=== PATIENT | female | born 1985 | race African-American/Black ===

== ENCOUNTER 2017-10-24 21:42 | Emergency (ER) | payer OTHER ==
--- NOTE | 2017-10-24 21:51 | ED Physician Documentation ---
PD HPI HEADACHE - Stated complaint Stated Complaint: HEADACHE - Chief complaint Chief Complaint: Neuro - History obtained from History obtained from: Patient - History of Present Illness Timing - onset: How many days ago (4-5) Timing - duration: Days (4-5) Timing - details: Gradual onset, Still present, Constant Worst headache ever?: No: Worst headache ever? (has had migraines in the past and they usually were short (few hours to part of a day) or would respond to Maxalt. But was told to not take that by her PROJECT LANDSCAPE ARCHITECT.) Location: Front, Right Quality: Throbbing, Aching Associated symptoms: Nausea. No: Fever, Stiff neck, Weakness, Numbness, Vision changes (but is light sensitive) Improved by: No: Meds (zofran and tylenol) Worsened by: Light Contributing factors: No: Hypertension, Recent illness, Trauma Similar symptoms before: Diagnosis (migraines) Recently seen: Not recently seen Review of Systems Constitutional: denies: Fever, Chills Eyes: reports: Photophobia. denies: Loss of vision Nose: denies: Rhinorrhea / runny nose, Congestion Throat: denies: Sore throat Cardiac: denies: Chest pain / pressure, Palpitations Respiratory: denies: Dyspnea, Cough GI: reports: Nausea, Vomiting. denies: Abdominal Pain, Diarrhea : reports: Now EGA (9 weeks). denies: Dysuria, Frequency Skin: denies: Rash, Lesions Musculoskeletal: denies: Extremity swelling Neurologic: reports: Generalized weakness, Headache. denies: Focal weakness, Numbness, Near syncope, Confused, Altered mental status, Head injury, LOC Endocrine: denies: Easy bruising / bleeding PD PAST MEDICAL HISTORY - Past Medical History Cardiovascular: None Respiratory: None Neuro: Migraines Endocrine/Autoimmune: None - Allergies Allergies/Adverse Reactions: Allergies Allergy/AdvReac Type Severity Reaction Status Date / Time Penicillins Allergy Respiratory Verified 10/24/17 21:49 PD ED PE NORMAL - Vitals Vital signs reviewed: Yes - General General: Alert and oriented X 3, No acute distress, Well developed/nourished - HEENT HEENT: PERRL, EOMI (light sensitive), Ears normal, Pharynx benign - Neck Neck: Supple, no meningeal sign, No adenopathy - Cardiac Cardiac: RRR, No murmur - Respiratory Respiratory: Clear bilaterally - Abdomen Abdomen: Soft, Non tender, Other (bedside US showing IUP with size c/w dates and heart beat noted. ) - Back Back: No CVA TTP - Derm Derm: Normal color - Extremities Extremities: Normal ROM s pain, No edema - Neuro Neuro: Alert and oriented X 3, No motor deficit, Normal speech Results - Vitals Vitals: Vital Signs - 24 hr 10/24/17 10/24/17 10/25/17 21:46 23:23 00:08 Temperature 35.8 C L Heart Rate 90 72 71 Respiratory 18 18 17 Rate Blood Pressure 141/88 H 115/64 114/71 O2 Saturation 100 115 H 100 Oxygen O2 Source Room air PD MEDICAL DECISION MAKING - ED course Complexity details: reviewed results (bedside US showed normal IUP with CRL 8.6 weeks c/w dates, and heart beat seen. ), re-evaluated patient (improved quite well with migraine targeted regimen. Initial BP was some elevated but improved to 114 systolic after meds. ), considered differential, d/w patient - Sepsis Event Vital Signs: Vital Signs - 24 hr 10/24/1718 10/25/17 21:46 23:23 00:08 Temperature 35.8 C L Heart Rate 90 72 71 Respiratory 18 18 17 Rate Blood Pressure 141/88 H 115/64 114/71 O2 Saturation 100 115 H 100 Oxygen O2 Source Room air Departure - Departure Disposition: 01 Home, Self Care Clinical Impression: Migraine Qualifiers: Migraine type: without aura Status migrainosus presence: with status migrainosus Intractability: not intractable Qualified Code(s): G43.001 - Migraine without aura, not intractable, with status migrainosus Qualifiers: Weeks of gestation: 9 weeks Qualified Code(s): Z3A.09 - 9 weeks gestation of Condition: Stable Record reviewed to determine appropriate education?: Yes Instructions: ED Headache Migraine Follow-Up: DIONNE Gayle [Provider Group] Comments: Drink lots of fluids. Continue usual medications. Add Tylenol if needed for headache. Follow-up with your primary care/ PROJECT LANDSCAPE ARCHITECT regarding subsequent treatment of further migraines. You could use a combination of the promethazine with ibuprofen during this point in . Discharge Date/Time: 10/25/17 00:17
[2017-10-24] MEDS ORDERED: diphenhydrAMINE INJ 50 MG/ML VIAL IVP STA (22:16)
[2017-10-24] MEDS ORDERED: DEXAMETHASONE 10 MG/ML VIAL IVP STA (22:16)
[2017-10-24] MEDS ORDERED: METOCLOPRAMIDE 10 MG/2 ML VIAL IVP STA (22:16)
[2017-10-24] MEDS ORDERED: SODIUM CHLORIDE 0.9% 1,000 ML IV ONE (22:16)
[2017-10-24] MEDS ORDERED: KETOROLAC 60 MG/2 ML VIAL IVP STA (22:16)
[2017-10-24] MEDS ORDERED: HYDROcod/ACET 5/325 Prepack 4 PO STA (23:37)
[2017-10-24] MEDS ORDERED: ACETAMINOPHEN 325 MG TABLET PO STA (23:37)
[2017-10-25 00:08] VITALS: BP 114/71
== END 2017-10-25 00:17 | disposition home or self-care (01) ==
LOC: ED 21:42
DX: O26.891 Other specified pregnancy related conditions, first trimester (principal); G43.001 Migraine without aura, not intractable, with status migrainosus; Z3A.09 9 weeks gestation of pregnancy
CPT/HCPCS: 96361; 96374; 96375; 99283; 99284; A9270; J1200; J2765

== ENCOUNTER 2017-12-24 19:30 | Emergency (ER) | payer OTHER ==
--- NOTE | 2017-12-24 20:14 | ED Physician Documentation ---
PD HPI CHEST PAIN - Stated complaint Stated Complaint: RAPID HEARTBEAT 18 WKS - Chief complaint Chief Complaint: Cardiac - History obtained from History obtained from: Patient - History of Present Illness Timing - onset: Today Timing - onset during: Light activity (walking up stairs) Timing - duration: Minutes Timing - details: Abrupt onset, Now resolved (last just few minutes, felt heart rate going fast when walking up stairs. Caused some discomfort/sharp pain left back with it. Heart rate improved after few minutes and no further pain.) Quality: Aching, Sharp Location: Left chest Radiation: Back Improved by: Nothing (the feeling stopped after few minutes.) Worsened by: No: Inspiration Associated symptoms: Feeling faint / dizzy, Palpitations (feeling of heart racing quickly abrupt onset.). No: Shortness of air, Diaphoresis, Nausea, Vomiting, General Weakness Similar symptoms before: No diagnosis (had similar eipsodes years ago when [place]. Had Holter monitor without acute findings.) Recently seen: Not recently seen Review of Systems Constitutional: denies: Fever, Chills Nose: denies: Rhinorrhea / runny nose, Congestion Throat: denies: Sore throat Cardiac: reports: Palpitations. denies: Chest pain / pressure, Pedal edema, Calf pain Respiratory: reports: Other (no chestwall tenderness). denies: Dyspnea, Cough, Wheezing GI: denies: Abdominal Pain, Nausea, Vomiting, Diarrhea Musculoskeletal: denies: Back pain, Extremity swelling Neurologic: denies: Generalized weakness, Near syncope Endocrine: denies: Weight loss PD PAST MEDICAL HISTORY - Past Medical History Cardiovascular: None, Arrhythmia (had episodes of fast heart rate years ago and had eval with Holter. No acute findings per patient. 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 denies: Aortic aneursym, Aortic dissection PD ED PE NORMAL - Vitals Vital signs reviewed: Yes - General General: Alert and oriented X 3, No acute distress, Well developed/nourished - HEENT HEENT: Pharynx benign - Neck Neck: Supple, no meningeal sign, No adenopathy - Cardiac Cardiac: RRR, No murmur - Respiratory Respiratory: Clear bilaterally - Abdomen Abdomen: Normal bowel sounds, Soft, No organomegaly, Other (bedside U/S showing good IUP with mov). No: Non distended (but gravid c/w daters) - Back Back: No CVA TTP - Derm Derm: Normal color, Warm and dry, No rash - Extremities Extremities: No tenderness to palpate, Normal ROM s pain, No edema, No calf tenderness / cord - Neuro Neuro: Alert and oriented X 3, No motor deficit, Normal speech Results - Vitals Vitals: Oxygen O2 Source Room air - EKG (time done) 19:48 Rate: Rate (enter#) Rhythm: NSR [place]: Normal Intervals: Normal DC Ischemia: Normal ST segments. No: ST elevation c/w ischemia, ST depression - Labs Labs: Laboratory Tests 12/24/17 12/24/17 20:48 20:48 WBC 11.2 H RBC 3.71 L Hgb 11.6 L Hct 34.1 L MCV 92.0 MCH 31.2 H MCHC 33.9 RDW 13.9 Plt Count 285 MPV 7.2 L Neut # (Auto) 8.1 H Lymph # (Auto) 1.8 [place] # (Auto) 1.1 H Eos # (Auto) 0.2 Baso # (Auto) 0.0 Absolute Nucleated RBC 0.01 Nucleated RBC % 0.0 Sodium 136 Potassium 4.6 Chloride 103 Carbon Dioxide 25 Anion Gap 8.0 BUN 9 Creatinine 0.8 Estimated GFR (MDRD) 100 Glucose 100 Calcium 9.3 Magnesium 1.8 Total Bilirubin 0.8 AST 17 ALT 13 Alkaline Phosphatase 68 Total Protein 7.0 Albumin 3.3 Globulin 3.7 Albumin/Globulin Ratio 0.9 L Lipase 20 L PD MEDICAL DECISION MAKING - ED course Complexity details: considered differential, d/w patient - Sepsis Event Vital Signs: Oxygen O2 Source Room air Departure - Departure Disposition: 01 Home, Self Care Clinical Impression: Rapid heart rate Qualifiers: Weeks of gestation: 18 weeks Qualified Code(s): Z3A.18 - 18 weeks gestation of Condition: Stable Record reviewed to determine appropriate education?: Yes Instructions: ED Tachycardia Pat PSVT Comments: Drink lots of fluids. Your basic electrolytes and blood count are okay here. Your heart rate and blood pressure and EKG are normal as well. Bedside ultrasound shows normal . Follow-up with your primary care if you have recurring episodes of the feeling of fast heart rate. If so they can do a recording monitor to try to capture some of the events to see if they truly are abnormal rhythm. Return if worsening symptoms. Discharge Date/Time: 12/24/17 21:33
[2017-12-24 20:51] LABS: BASOPHILS % (AUTO) 0.4 %; EOSINOPHILS # (AUTO) 0.2 10^3/uL (0.0-0.7); EOSINOPHILS % (AUTO) 1.5 %; HGB - HEMOGLOBIN 11.6 g/dL (12.0-16.0); LYMPHOCYTES # (AUTO) 1.8 10^3/uL (1.5-3.5); LYMPHOCYTES % (AUTO) 16.2 %; MEAN CORPUSCULAR HEMOGLOBIN 31.2 pg (27.0-31.0); MEAN CORPUSCULAR HGB CONC 33.9 g/dL (32.0-36.0); MEAN PLATELET VOLUME 7.2 fL (7.9-10.8); MONOCYTES # (AUTO) 1.1 10^3/uL (0.0-1.0); MONOCYTES % (AUTO) 9.5 %; NEUTROPHILS # (AUTO) 8.1 10^3/uL (1.5-6.6); NEUTROPHILS % (AUTO) 72.4 %; PLT - PLATELET COUNT 285 10^3/uL (130-450); RED BLOOD COUNT 3.71 10^6/uL (4.20-5.40); RED CELL DISTRIBUTION WIDTH 13.9 % (12.0-15.0); WHITE BLOOD COUNT 11.2 x10^3/uL (4.8-10.8)
[2017-12-24 21:04] LABS: ALBUMIN 3.3 g/dL (3.2-5.5); ALBUMIN/GLOBULIN RATIO 0.9 (1.0-2.2); BILIRUBIN,TOTAL 0.8 mg/dL (0.2-1.0); CALCIUM 9.3 mg/dL (8.5-10.3); CREATININE 0.8 mg/dL (0.4-1.0); MAGNESIUM 1.8 mg/dL (1.7-2.8)
[2017-12-24 21:18] VITALS: BP 126/68
== END 2017-12-24 21:33 | disposition home or self-care (01) ==
LOC: ED 19:30
DX: O26.892 Other specified pregnancy related conditions, second trimester (principal); R00.0 Tachycardia, unspecified; Z3A.18 18 weeks gestation of pregnancy
CPT/HCPCS: 36415; 80053; 83690; 83735; 85025; 93005; 99283

== ENCOUNTER 2018-03-17 19:10 | Outpatient (CLI) | payer OTHER ==
[2018-03-17 19:36] VITALS: BP 116/71
[2018-03-17 20:00] LABS: BILIRUBIN,URINE NEGATIVE (NEGATIVE); GLUCOSE, URINE (UA) NEGATIVE (NEGATIVE); KETONES,URINE (UA) NEGATIVE (NEGATIVE); LEUKOCYTE ESTERASE, URINE NEGATIVE (NEGATIVE); NITRITE,URINE NEGATIVE (NEGATIVE); OCCULT BLOOD,URINE NEGATIVE (NEGATIVE); PROTEIN,URINE NEGATIVE (NEGATIVE); UROBILINOGEN,URINE 0.2 (NORMAL) E.U./dL (NORMAL)
[2018-03-17 20:10] LABS: BACTERIA,URINE None Seen /HPF (None Seen); CLARITY,URINE CLEAR (CLEAR); RBC,URINE 0-5 /HPF (0-5); SQUAMOUS EPITHELIAL CELL,UR FEW Squamous (<= Few)
== END 2018-03-17 21:26 | disposition home or self-care (01) ==
LOC: WFO 19:10 → FBP 19:12 → WFO 21:26
PROVIDERS: ATTEND Obstetrics & Gynecology
DX: O34.219 Maternal care for unspecified type scar from previous cesarean delivery (principal); Z3A.30 30 weeks gestation of pregnancy
CPT/HCPCS: 81001; 82731; 87086; 99214

== ENCOUNTER 2018-03-30 20:12 | Outpatient (CLI) | payer OTHER ==
[2018-03-30 21:00] VITALS: BP 136/64
== END 2018-03-30 21:01 | disposition short-term general hospital (02) ==
LOC: WFO 20:12 → FBP 20:13 → WFO 21:01
PROVIDERS: ATTEND Obstetrics & Gynecology
DX: O99.89 Other specified diseases and conditions complicating pregnancy, childbirth and the puerperium (principal); R51 Headache; Z3A.32 32 weeks gestation of pregnancy
CPT/HCPCS: 99212

== ENCOUNTER 2018-03-30 21:04 | Emergency (ER) | payer OTHER ==
--- NOTE | 2018-03-30 22:58 | ED Physician Documentation ---
PD HPI HEADACHE - Stated complaint Stated Complaint: MIGRAINE/32 WKS/OB SENT TO ER - Chief complaint Chief Complaint: Neuro - History obtained from History obtained from: Patient - History of Present Illness Timing - onset: Yesterday Timing - details: Gradual onset, Constant Pain level now: 8 Worst headache ever?: No: Worst headache ever? Location: Left, Other (retrorbital and occipital, left) Associated symptoms: Nausea. No: Fever, Stiff neck, Vomiting, Numbness, Vision changes Improved by: Dark room, Quiet Worsened by: Light, Noise Similar symptoms before: Diagnosis (similar to previous migraine headaches) Recently seen: Not recently seen - Additional information Additional information: patient is 32 weeks . c/o left-sided headache that is typical for her migraine headaches. took tylenol without relief Review of Systems Constitutional: denies: Fever, Chills, Sweats Eyes: reports: Photophobia. denies: Loss of vision, Decreased vision GI: reports: Nausea. denies: Abdominal Pain, Vomiting : reports: Now EGA (32 weeks). denies: Vaginal bleeding Musculoskeletal: denies: Neck pain Neurologic: reports: Headache. 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 HEENT: None Psych: None Musculoskeletal: None Derm: None - Past Surgical History Past Surgical History: Yes Ortho: Other /DRESSAGE JUDGE: section HEENT: Tonsil/Adenoidectomy - Present Medications Home Medications: Ambulatory Orders Medication Instructions Recorded Confirmed Metoclopramide [Reglan] 10 mg PO Q6H PRN #10 tablet 03/31/18 - Allergies Allergies/Adverse Reactions: Allergies Allergy/AdvReac Type Severity Reaction Status Date / Time Penicillins Allergy Respiratory Verified 03/30/18 21:09 - Social History Does the pt smoke?: No Smoking Status: Never smoker Does the pt drink ETOH?: No Does the pt have substance abuse?: No - Immunizations Immunizations are current?: Yes - POLST Patient has POLST: No PD ED PE NORMAL - Vitals Vital signs reviewed: Yes - General General: Alert and oriented X 3, Well developed/nourished, Other (appears uncomfortable) - HEENT HEENT: PERRL, EOMI - Neck Neck: Supple, no meningeal sign - Cardiac Cardiac: RRR, No murmur - Respiratory Respiratory: No respiratory distress, Clear bilaterally - Abdomen Abdomen: Soft, Non tender - Neuro Neuro: Alert and oriented X 3, 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 site 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, Normal speech Results - Vitals Vitals: Vital Signs - 24 hr 03/30/18 03/31/18 03/31/18 21:07 00:35 00:43 Temperature 36.6 C Heart Rate 100 88 Respiratory 20 17 17 Rate Blood Pressure 140/78 H 132/88 H O2 Saturation 100 100 03/31/18 01:37 Temperature Heart Rate 87 Respiratory 17 Rate Blood Pressure O2 Saturation Oxygen O2 Source Room air PD MEDICAL DECISION MAKING - ED course Complexity details: reviewed old records, re-evaluated patient, considered differential, d/w patient ED course: on reevaluation after IV reglan, benadryl, decadron, po acetaminophen: patient appears comfortable and reports adequate improvement. She is comfortable going home Departure - Departure Disposition: , Self Care Clinical Impression: Migraine Condition: Good Instructions: ED Headache Migraine Prescriptions: Metoclopramide [Reglan] 10 mg PO Q6H PRN #10 tablet PRN Reason: Nausea / Vomiting Discharge Date/Time: 03/31/18 01:37
[2018-03-30] MEDS ORDERED: SODIUM CHLORIDE 0.9% 1,000 ML IV STA (23:19)
[2018-03-30] MEDS ORDERED: DEXAMETHASONE 10 MG/ML VIAL IVP STA (23:22)
[2018-03-30] MEDS ORDERED: METOCLOPRAMIDE 10 MG/2 ML VIAL IVP STA (23:23)
[2018-03-30] MEDS ORDERED: diphenhydrAMINE INJ 50 MG/ML VIAL IVP STA (23:23)
[2018-03-30] MEDS ORDERED: ACETAMINOPHEN 325 MG TABLET PO STA (23:24)
[2018-03-31 00:44] VITALS: BP 132/88
== END 2018-03-31 01:37 | disposition home or self-care (01) ==
LOC: ED 21:04
DX: O99.353 Diseases of the nervous system complicating pregnancy, third trimester (principal); G43.909 Migraine, unspecified, not intractable, without status migrainosus; Z3A.32 32 weeks gestation of pregnancy
CPT/HCPCS: 96361; 96374; 96375; 99283; A9270; J1200; J2765; 99212

== ENCOUNTER 2018-07-04 07:50 | Emergency (ER) | payer OTHER ==
[2018-07-04 07:58] VITALS: BP 126/82
--- NOTE | 2018-07-04 08:00 | ED Physician Documentation ---
PD HPI SKIN - Stated complaint Stated Complaint: POSS ALLERGIC REACTION - History obtained from History obtained from: Patient - History of Present Illness Timing - onset: Yesterday Timing - duration: Days (2) Timing - details: Gradual onset Location: Other (palms and feet, with some sore throat as well) Quality / character: Itchy, Painful Associated symptoms: No: Myalgias, N/V/D Contributing factors: Recent illness (has had some URI symptoms the past week). No: Exposed to Poison silvestre/oak, Insect bite /sting Similar symptoms before: Has not had sx before Recently seen: Not recently seen Review of Systems Constitutional: reports: Chills. 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: Yes - POLST Patient has POLST: No PD ED PE NORMAL - Vitals Vital signs reviewed: Yes - General General: Alert and oriented X 3, No acute distress, Well developed/nourished - HEENT HEENT: Ears normal. No: Pharynx benign (there are red, small ulcerative spots on palatte and buccal gums. Tonsils appear normal.) - Neck Neck: Supple, no meningeal sign, No adenopathy - Cardiac Cardiac: RRR, No murmur - Respiratory Respiratory: Clear bilaterally - Abdomen Abdomen: Soft, Non tender - Derm Derm: Normal color, Warm and dry - Extremities Extremities: Other (hands with tender, indurated red spots scattered on palms. Feet not inspected but patient says similar. ) Results - Vitals Vitals: Oxygen O2 Source Room air PD MEDICAL DECISION MAKING - ED course Complexity details: considered differential (firm tender spots on hands, feet, mouth, recent/current URI symptoms. Does not seem allergic reaction. ), d/w patient Departure - Departure Disposition: 01 Home, Self Care Clinical Impression: Hand, foot and mouth disease (HFMD) Condition: Stable Record reviewed to determine appropriate education?: Yes Instructions: ED Hand Foot Mouth Disease Ch Prescriptions: Dexamethasone [Decadron] 4 mg PO DAILY #5 tablet Comments: This looks more like a viral rash called kmlq-arhv-ydk-mouth disease which is just the rash manifestation of a viral illness (head cold"). A an allergic reaction typically does not have this type of pattern. However you could hold off on the metoclopramide another day and take the Decadron anti-inflammatory to help with some of the tenderness and inflammation. If the rash is persisting, that would speak more to it being a viral illness and you can resume the metoclopramide. Discharge Date/Time: 07/04/18 08:25
[2018-07-04] MEDS ORDERED: DEXAMETHASONE 10 MG/ML VIAL PO STA (08:16)
== END 2018-07-04 08:25 | disposition home or self-care (01) ==
LOC: ED 07:50
DX: B08.4 Enteroviral vesicular stomatitis with exanthem (principal)
CPT/HCPCS: 99283

== ENCOUNTER 2018-09-10 22:55 | Emergency (ER) | payer OTHER ==
--- NOTE | 2018-09-10 23:25 | ED Physician Documentation ---
PD HPI CHEST PAIN - Stated complaint Stated Complaint: CHEST DISCOMFORT - Chief complaint Chief Complaint: Cardiac - History obtained from History obtained from: Patient - History of Present Illness Timing - onset: Today Timing - onset during: Rest (She had onset of a left-sided headache which was abrupt and sharp. She then noted pain down into the left side of the neck and l eft chest. She felt slightly lightheaded. She did not have any loss of vision. She denied any unit of lateral weakness. She denied any shortness of breath. The pain was pretty intense and lasted for several minutes up to a half an hour. It then started tapering down. She comes in for evaluation.) Timing - details: Abrupt onset, Still present (tapering, and the headache is mostly gone, but still hurting left chest and side of neck.) Quality: Aching, Sharp, Pain Location: Left chest Radiation: Neck (and left head, which is where it started actually.) Associated symptoms: Feeling faint / dizzy. No: Shortness of air, Diaphoresis, Nausea, Palpitations Similar symptoms before: Has not had sx before (She has had migraines in the past but states this feels quite different from those.) Review of Systems Constitutional: denies: Fever, Chills, Myalgias Eyes: denies: Loss of vision, Decreased vision Nose: denies: Rhinorrhea / runny nose, Congestion Throat: denies: Sore throat Cardiac: reports: Chest pain / pressure. 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 OPERATOR: section HEENT: Tonsil/Adenoidectomy - Present Medications Home Medications: Ambulatory Orders Medication Instructions Recorded Confirmed Metoclopramide [Reglan] 10 mg PO Q6H PRN #10 tablet 03/31/18 07/04/18 Dexamethasone [Decadron] 4 mg PO DAILY #5 tablet 07/04/18 - Allergies Allergies/Adverse Reactions: Allergies Allergy/AdvReac Type Severity Reaction Status Date / Time Penicillins Allergy Respiratory Verified 09/10/18 23:03 - Social History Does the pt smoke?: No Smoking Status: Never smoker Does the pt drink ETOH?: No Does the pt have substance abuse?: No - Immunizations Immunizations are current?: Yes - POLST Patient has POLST: No PD ED PE NORMAL - Vitals Vital signs reviewed: Yes - General General: Alert and oriented X 3, No acute distress, Well developed/nourished - HEENT HEENT: PERRL, EOMI (fundi appear normal), Moist mucous membranes, Pharynx benign - Neck Neck: Supple, no meningeal sign, No adenopathy, No JVD, No bruit - Cardiac Cardiac: RRR, No murmur - Respiratory Respiratory: Clear bilaterally - Derm Derm: Normal color, Warm and dry, No rash - Extremities Extremities: No deformity, No tenderness to palpate, Normal ROM s pain, No edema, No calf tenderness / cord - Neuro Neuro: Alert and oriented X 3, 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, No motor deficit, No sensory deficit, Normal speech, Other Results - Vitals Vitals: Vital Signs - 24 hr 09/10/18 09/10/18 09/11/18 23:01 23:53 01:23 Temperature 36.9 C Heart Rate 100 76 70 Respiratory 18 18 17 Rate Blood Pressure 153/101 H 135/93 H 128/89 H O2 Saturation 100 100 100 09/11/18 09/11/18 09/11/18 01:50 01:56 01:58 Temperature Heart Rate 111 H 88 96 Respiratory 24 18 13 Rate Blood Pressure 173/102 H O2 Saturation 95 100 09/11/18 09/11/18 09/11/18 02:08 02:12 03:09 Temperature Heart Rate 86 81 67 Respiratory 18 17 15 Rate Blood Pressure 133/83 H 129/86 H O2 Saturation 100 96 100 09/11/18 03:18 Temperature Heart Rate 70 Respiratory 15 Rate Blood Pressure 129/86 H O2 Saturation 100 Oxygen O2 Source Room air - Labs Labs: Laboratory Tests 09/11/18 09/11/18 09/11/18 00:48 02:00 02:00 WBC 6.4 RBC 4.50 Hgb 13.2 Hct 39.4 MCV 87.6 MCH 29.4 MCHC 33.6 RDW 13.9 Plt Count 278 MPV 7.5 L Neut # (Auto) 2.5 Lymph # (Auto) 3.0 [place] # (Auto) 0.7 Eos # (Auto) 0.1 Baso # (Auto) 0.1 Absolute Nucleated RBC 0.01 Nucleated RBC % 0.1 ESR 3 Sodium 141 Potassium 3.6 Chloride 102 Carbon Dioxide 29 Anion Gap 10.0 BUN 13 Creatinine 0.9 Estimated GFR (MDRD) 87 L Glucose 112 H Calcium 9.3 Total Bilirubin 0.9 AST 15 ALT 10 Alkaline Phosphatase 91 Total Protein 7.3 Albumin 3.7 Globulin 3.6 Albumin/Globulin Ratio 1.0 Lipase 21 L - Rads (name of study) neck and hed angio Radiology: Prelim report reviewed (Normal studies without any appearance of dissection aneurysms or occlusions. No structural abnormalities on head CT.), See rad report PD MEDICAL DECISION MAKING - ED course Complexity details: re-evaluated patient (Right after the CT scan she did develop a feeling of burning in her skin with some redness and also feeling of trouble breathing and swallowing. Here in the department she did look like she was working to breathe. Evaluation of her throat did not show any obvious edema. She did not have any wheezing. She is given IV Benadryl and steroids with improvement in her symptoms over several minutes. She is back to her baseline now and feeling okay.), considered differential (Given the abruptness of the headache and the neck and chest pain, I was concerned about vascular problems such as dissection. He did not have any focal weaknesses. She states her headache is very unlike her migraines. I do feel we need to do some imaging studies with and Micki over neck and head to really evaluate for serious conditions.), d/w patient Departure - Departure Disposition: 01 Home, Self Care Clinical Impression: Headache Qualifiers: Headache type: unspecified Headache chronicity pattern: acute headache Intractability: not intractable Qualified Code(s): R51 - Headache Chest pain Qualifiers: Chest pain type: precordial pain Qualified Code(s): R07.2 - Precordial pain Condition: Stable Record reviewed to determine appropriate education?: Yes Instructions: ED Chest Pain Atypical Unkn Cause, ED Cephalgia Unspecified Comments: Your scans of the neck and head are normal without any signs of blood vessel abnormalities or tumors or other serious causes. Presume therefore your headache is either a variation of migraine or muscular or such. Use ibuprofen or naproxen or Tylenol as needed for pains. Recheck if recurring symptoms. Regarding your reaction to the contrast dye, you can avoid contrast dye with further scans as much as possible. If you were to need a CT with contrast in the future, the symptoms can be diminished or avoided by treating ahead of time with some Benadryl and steroid. It is an uncommon reaction. Discharge Date/Time: 09/11/18 03:29
[2018-09-11] MEDS ORDERED: KETOROLAC 30 MG/ML VIAL IVP STA (00:04)
[2018-09-11] MEDS ORDERED: IOVERSOL 320 100 ML VIAL IVP ONE ×2 (00:28→02:16)
[2018-09-11 01:12] LABS: ALBUMIN 3.7 g/dL (3.2-5.5); BILIRUBIN,TOTAL 0.9 mg/dL (0.2-1.0); CALCIUM 9.3 mg/dL (8.5-10.3); CREATININE 0.9 mg/dL (0.4-1.0); TOTAL PROTEIN 7.3 g/dL (6.7-8.2)
[2018-09-11] MEDS ORDERED: diphenhydrAMINE INJ 50 MG/ML VIAL IVP STA (01:51)
[2018-09-11] MEDS ORDERED: ALBUTEROL NEB 2.5 MG/3 ML INH STA (01:52)
[2018-09-11] MEDS ORDERED: DEXAMETHASONE 10 MG/ML VIAL IVP STA (01:52)
[2018-09-11] MEDS ORDERED: diphenhydrAMINE INJ 50 MG/ML VIAL ONE (01:57)
[2018-09-11 02:17] LABS: BASOPHILS # (AUTO) 0.1 10^3/uL (0.0-0.1); BASOPHILS % (AUTO) 1.1 %; EOSINOPHILS # (AUTO) 0.1 10^3/uL (0.0-0.7); EOSINOPHILS % (AUTO) 2.3 %; HGB - HEMOGLOBIN 13.2 g/dL (12.0-16.0); LYMPHOCYTES % (AUTO) 46.5 %; MEAN CORPUSCULAR HEMOGLOBIN 29.4 pg (27.0-31.0); MEAN CORPUSCULAR HGB CONC 33.6 g/dL (32.0-36.0); MEAN CORPUSCULAR VOLUME 87.6 fL (81.0-99.0); MEAN PLATELET VOLUME 7.5 fL (7.9-10.8); MONOCYTES # (AUTO) 0.7 10^3/uL (0.0-1.0); MONOCYTES % (AUTO) 10.9 %; NEUTROPHILS # (AUTO) 2.5 10^3/uL (1.5-6.6); NEUTROPHILS % (AUTO) 39.2 %; PLT - PLATELET COUNT 278 10^3/uL (130-450); RED CELL DISTRIBUTION WIDTH 13.9 % (12.0-15.0); WHITE BLOOD COUNT 6.4 x10^3/uL (4.8-10.8)
--- NOTE | 2018-09-11 02:53 | CT Report ---
Reason: left headache and neck/chest pain Procedure Date: 09/11/2018 Accession Number: [id number] / [id number] Procedure: CT - ANGIO NECK W/WO CPT Code: FULL RESULT: EXAM: CT ANGIOGRAM NECK EXAM DATE: 09/11/2018 02:13 AM. CLINICAL HISTORY: Left headache and neck/chest pain. COMPARISON: None. TECHNIQUE: Routine axial helical imaging was performed from the skull base through the aortic arch. Reconstructions: Routine multiplanar 3D MIP reconstructions. IV Contrast: [id number] 80ml. Evaluation of arterial stenosis is based on a NASCET method of measurement. In accordance with CT protocol optimization, one or more of the following dose reduction techniques were utilized for this exam: automated exposure control, adjustment of mA and/or KV based on patient size, or use of iterative reconstructive technique. FINDINGS: Right Carotid: The common carotid, internal carotid, and external carotid arteries are widely patent. No dissection, significant atherosclerotic plaque, or calcification identified. Left Carotid: The common carotid, internal carotid, and external carotid arteries are widely patent. No dissection, significant atherosclerotic plaque, or calcification identified. Vertebrals: The vertebrobasilar system shows no stenoses. Intracranial Circulation: Normal. No stenoses or aneurysms of the visualized vessels. Other: The bones, soft tissues, and lung apices are within normal limits. IMPRESSION: Normal neck CT angiogram. No hemodynamically significant stenoses. RADIA
--- NOTE | 2018-09-11 03:05 | CT Report ---
Reason: left headache and neck/chest pain Procedure Date: 09/11/2018 Accession Number: [id number] / [id number] Procedure: CT - ANGIO HEAD W CPT Code: FULL RESULT: EXAM: CT ANGIOGRAM HEAD. CT SCAN OF THE HEAD WITHOUT AND WITH CONTRAST. EXAM DATE: 09/11/2018 02:11 AM CLINICAL HISTORY: Left headache and neck/chest pain. COMPARISON: None. TECHNIQUE: - CT Scan Head: Using a multidetector scanner, axial images were acquired from the foramen magnum to the skull vertex prior to and following contrast administration. - CT Angiogram: Using a multidetector scanner, high-resolution axial images were acquired from the skull base through vertex following rapid infusion of intravenous contrast. Reformats: Multiplanar MIP reformats were reconstructed. Nascet criteria used for stenosis measurement. IV Contrast: [id number] 80ml. In accordance with CT protocol optimization, one or more of the following dose reduction techniques were utilized for this exam: automated exposure control, adjustment of mA and/or KV based on patient size, or use of iterative reconstructive technique. FINDINGS: NON-CONTRAST HEAD: Parenchyma: No intraparenchymal hemorrhage. No evidence of mass, midline shift, or CT findings of infarction. Burris-white differentiation is distinct. Extraaxial Spaces: Normal for age. No subdural or epidural collections identified. Ventricles: Normal in size and position. Sinuses and orbits: Imaged paranasal sinuses, orbits, and mastoids show no significant abnormality. Bones: No evidence of fracture or calvarial defect. Other: None. POST-CONTRAST HEAD: No abnormal enhancement. CT ANGIOGRAM HEAD: RIGHT: Internal Carotid artery: No evidence of dissection. No evidence of aneurysm along the intracranial ICA. Anterior Cerebral Artery: Patent without significant stenosis, aneurysm, or vascular malformation. Middle Cerebral Artery: Patent without significant stenosis, aneurysm, or vascular malformation. Posterior Cerebral Artery: Patent without significant stenosis, aneurysm, or vascular malformation. Posterior Communicating Artery: Patent. No aneurysm. Vertebral Artery: Patent without significant stenosis. No evidence of dissection. LEFT: Internal Carotid artery: No evidence of dissection. No evidence of aneurysm along the intracranial ICA. Anterior Cerebral Artery: Patent without significant stenosis, aneurysm, or vascular malformation. Middle Cerebral Artery: Patent without significant stenosis, aneurysm, or vascular malformation. Posterior Cerebral Artery: Patent without significant stenosis, aneurysm, or vascular malformation. Posterior Communicating Artery: Patent. No aneurysm. Vertebral Artery: Patent without significant stenosis. No evidence of dissection. CENTRAL: Anterior Communicating Artery: Patent. No aneurysm. Basilar Artery: Patent without significant stenosis. No aneurysm. DURAL VENOUS SINUSES AND MAJOR CENTRAL VEINS: Patent. IMPRESSION: CT Head: No acute intracranial abnormality. Specifically, no evidence of acute infarct, hemorrhage, or mass lesion. No abnormal enhancement. CTA Head: Normal CTA of the head. No significant vascular stenosis, dissection, or aneurysm. RADIA
[2018-09-11 03:10] VITALS: BP 129/86
== END 2018-09-11 03:29 | disposition home or self-care (01) ==
LOC: ED 22:55
DX: R51 Headache (principal); R07.2 Precordial pain; M54.2 Cervicalgia; R42 Dizziness and giddiness; L53.9 Erythematous condition, unspecified; R06.09 Other forms of dyspnea; R13.10 Dysphagia, unspecified; T50.8X5A Adverse effect of diagnostic agents, initial encounter; Y92.238 Other place in hospital as the place of occurrence of the external cause
CPT/HCPCS: 36415; 70496; 70498; 80053; 83690; 85025; 85651; 93005; 94640; 96374; 96375; 99284; J1200; Q9967

== ENCOUNTER 2018-11-07 12:26 | Outpatient (CLI) | payer OTHER ==
--- NOTE | 2018-11-08 14:23 | MRI Report ---
Reason: SCIATICA,UNSPECIFIED SITE Procedure Date: 11/07/2018 Accession Number: [id number] / [id number] Procedure: MRI - Lumbar Spine W/O CPT Code: FULL RESULT: EXAM: MRI LUMBAR SPINE WITHOUT CONTRAST EXAM DATE: 11/07/2018 01:33 PM. CLINICAL HISTORY: Low back pain. Right leg pain and numbness. Sciatica. COMPARISON: None. TECHNIQUE: Multiplanar, multisequence T1-weighted and fluid-sensitive sequences of the lumbar spine from T12 to S1 without contrast. Other: None. FINDINGS: Spinal Canal: The conus terminates at L1-L2. The conus medullaris and cauda equina are unremarkable. Alignment: No scoliosis or spondylolisthesis. Bone Marrow: Five lcp-ngt-jqlhlje lumbar vertebral bodies are assumed. No gross fractures or bone lesions. No bone marrow replacement. Disk Levels/Facets: T12-L1: Unremarkable. L1-L2: Unremarkable. L2-L3: Unremarkable. L3-L4: Unremarkable. L4-L5: Unremarkable. L5-S1: Mild disk space narrowing. Small posterior central disk protrusion with annular fissure. Minimal left foraminal narrowing. Musculature: Normal. No edema or fatty atrophy. Other: The partially visualized retroperitoneum is unremarkable. IMPRESSION: 1. Small posterior central disk protrusion with annular fissure and minimal foraminal narrowing at L5-S1. Comment: The following findings are so common in adults without low back pain that while we report their presence, they must be interpreted with caution and in the context of the clinical situation. (Reference Franklinvik et al, Spine 2001) Prevalence of findings in patients without low back pain: Disk degeneration (any evidence): 92% Disk desiccation/T2 signal loss: 83% Disk height loss: 56% Disk bulge: 64% Disk protrusion: 32% Annular tear/high intensity zone: 38% RADIA
== END 2018-11-07 12:27 | disposition home or self-care (01) ==
LOC: DI 12:26
PROVIDERS: ATTEND Nurse Practitioner Family
DX: M51.17 Intervertebral disc disorders with radiculopathy, lumbosacral region (principal)
CPT/HCPCS: 72148

== ENCOUNTER 2019-07-22 01:16 | Outpatient (CLI) | payer OTHER | END 2019-07-22 01:17 | disposition critical access hospital (66) | LOC: EMS 01:16 | PROVIDERS: ATTEND Surgery | DX: R05 Cough (principal); R07.89 Other chest pain | CPT/HCPCS: A0425; A0429 ==

== ENCOUNTER 2019-07-22 01:32 | Emergency (ER) | payer OTHER ==
[2019-07-22] MEDS ORDERED: predniSONE 20 MG TABLET PO STA (01:46)
[2019-07-22] MEDS ORDERED: BENZONATATE 100 MG CAPSULE PO STA (01:49)
--- NOTE | 2019-07-22 01:49 | ED Physician Documentation ---
History of Present Illness - Stated complaint Stated Complaint: SOA/COUGH - Chief complaint Chief Complaint: Resp - History obtained from History obtained from: Patient (The patient is a 33-year-old female who arrives via ambulance after she developed a cough and maybe some wheezing.She denies fevers, headache, neck pain or rashes denies any chest pain denies any hemoptysis.She does have a hand-held inhaler at home.She reports that she feels better now that she has had 1 breathing treatment.) Review of Systems Constitutional: reports: Reviewed and negative Eyes: reports: Reviewed and negative Ears: reports: Reviewed and negative Nose: reports: Reviewed and negative Throat: reports: Reviewed and negative Cardiac: reports: Reviewed and negative Respiratory: reports: Cough, Wheezing GI: reports: Reviewed and negative : reports: Reviewed and negative Skin: reports: Reviewed and negative Musculoskeletal: reports: Reviewed and negative Neurologic: reports: Reviewed and negative Psychiatric: reports: Reviewed and negative Endocrine: reports: Reviewed and negative Immunocompromised: reports: Reviewed and negative PD PAST MEDICAL HISTORY - Past Medical History Cardiovascular: Arrhythmia Respiratory: None Neuro: Migraines Endocrine/Autoimmune: None GI: None 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 HEENT: None Psych: None Musculoskeletal: None Derm: None - Past Surgical History Past Surgical History: Yes Ortho: Other /JANITOR HELPER: section HEENT: Tonsil/Adenoidectomy - Present Medications Home Medications: Ambulatory Orders Medication Instructions Recorded Confirmed Metoclopramide [Reglan] 10 mg PO Q6H PRN #10 tablet 03/31/18 07/04/18 dexAMETHasone [Decadron] 4 mg PO DAILY #5 tablet 07/04/18 Albuterol Sulfate [Albuterol 18 gm IH Q6HR PRN #1 hfa.aer.ad 07/22/19 Sulfate Hfa] Benzonatate [Tessalon Perle] 100 mg PO BID #10 capsule 07/22/19 - Allergies Allergies/Adverse Reactions: Allergies Allergy/AdvReac Type Severity Reaction Status Date / Time Iodine and Iodide Containing Allergy Anaphylaxis Verified 07/22/19 01:41 Produc Penicillins Allergy Respiratory Verified 07/22/19 01:40 - Social History Does the pt smoke?: No Smoking Status: Never smoker Does the pt drink ETOH?: No Does the pt have substance abuse?: No - Immunizations Immunizations are current?: Yes - POLST Patient has POLST: No PD ED PE NORMAL - Vitals Vital signs reviewed: Yes - General General: Alert and oriented X 3, No acute distress, Well developed/nourished - HEENT HEENT: Atraumatic, PERRL, Ears normal, Moist mucous membranes, Pharynx benign - Neck Neck: Supple, no meningeal sign, No JVD - Cardiac Cardiac: RRR, No murmur, Strong equal pulses - Respiratory Respiratory: No respiratory distress, Clear bilaterally - Abdomen Abdomen: Normal bowel sounds, Soft, Non tender, Non distended, No organomegaly - Back Back: No CVA TTP, No spinal TTP - Derm Derm: Normal color, Warm and dry, No rash, Other - Extremities Extremities: No deformity, No tenderness to palpate, Normal ROM s pain, No edema, No calf tenderness / cord - Neuro Neuro: Alert and oriented X 3, 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 There is minimal wheezing, no use of accessory muscles trachea is midline no respiratory distress.) Departure - Departure Disposition: 01 Home, Self Care Clinical Impression: Cough Condition: Stable Instructions: ED Viral Syndrome Follow-Up: Brittany Hickey, URGENT CARE NURSE PRACTITIONER [Primary Care Provider] - 07/22/19 Prescriptions: Albuterol Sulfate [Albuterol Sulfate Hfa] 18 gm IH Q6HR PRN #1 hfa.aer.ad PRN Reason: Wheezing Benzonatate [Tessalon Perle] 100 mg PO BID #10 capsule
--- NOTE | 2019-07-22 02:41 | XRAY Report ---
Reason: cough sob Procedure Date: 07/22/2019 Accession Number: [id number] / [id number] Procedure: XR - Chest 2 View X-Ray CPT Code: 58185 Final Report FULL RESULT: EXAM: CHEST RADIOGRAPHY EXAM DATE: 07/22/2019 02:21 AM. CLINICAL HISTORY: Cough sob. COMPARISON: None. TECHNIQUE: 2 views. FINDINGS: Lungs/Pleura: No focal opacities evident. No pleural effusion. No pneumothorax. Normal volumes. Mediastinum: Heart and mediastinal contours are unremarkable. Other: None. IMPRESSION: Normal 2-view chest radiography. RADIA
[2019-07-22 02:58] VITALS: BP 149/95
== END 2019-07-22 03:00 | disposition home or self-care (01) ==
LOC: EDUNIT# → ED 01:32
DX: R05 Cough (principal)
CPT/HCPCS: 71046; 99283; A9270; J7512

== ENCOUNTER 2021-06-22 22:59 | Emergency (ER) | payer OTHER ==
[2021-06-22 23:11] LABS: BASOPHILS % (AUTO) 0.4 %; EOSINOPHILS # (AUTO) 0.1 10^3/uL (0.0-0.7); HCT - HEMATOCRIT 40.3 % (37.0-47.0); HGB - HEMOGLOBIN 13.3 g/dL (12.0-16.0); LYMPHOCYTES # (AUTO) 3.1 10^3/uL (1.5-3.5); LYMPHOCYTES % (AUTO) 45.9 %; MEAN CORPUSCULAR HEMOGLOBIN 29.7 pg (27.0-31.0); MEAN PLATELET VOLUME 9.5 fL (7.9-10.8); MONOCYTES # (AUTO) 0.5 10^3/uL (0.0-1.0); MONOCYTES % (AUTO) 7.4 %; NEUTROPHILS % (AUTO) 45.2 %; PLT - PLATELET COUNT 286 10^3/uL (130-450); RED BLOOD COUNT 4.48 10^6/uL (4.20-5.40); RED CELL DISTRIBUTION WIDTH 12.8 % (12.0-15.0); WHITE BLOOD COUNT 6.8 x10^3/uL (4.8-10.8)
[2021-06-22 23:22] LABS: ALBUMIN 4.1 g/dL (3.2-5.5); ALBUMIN/GLOBULIN RATIO 1.2 (1.0-2.2); BILIRUBIN,TOTAL 0.9 mg/dL (0.2-1.0); CALCIUM 8.7 mg/dL (8.5-10.3); CREATININE 0.9 mg/dL (0.4-1.0); POTASSIUM 3.3 mmol/L (3.5-5.0); TOTAL PROTEIN 7.4 g/dL (6.7-8.2)
[2021-06-22] MEDS ORDERED: HYDROmorphone 1 MG/ML CARPUJECT IVP STA (23:45)
--- NOTE | 2021-06-23 01:20 | Ultrasound Report ---
PROCEDURE: Abdomen Limited INDICATIONS: RUQ and epigastric pain TECHNIQUE: Real-time focused scanning was performed of the abdomen, with image documentation. COMPARISON: None. FINDINGS: Liver is normal in size and demonstrates mildly increased hepatic echotexture. The gallbladder is normal. No gallstones, gallbladder wall thickening, pericholecystic progression or sonographic Rudolph sign. Common bile duct measures 4.9 mm in diameter. Pancreas is obscured by overlying bowel gas. Right kidney is normal in size. No hydronephrosis. Punctate hyperechoic foci in right kidney could be small nonobstructive stones. IMPRESSION: 1. Limited examination due to the patient's body habitus. 2. Diffuse increased hepatic echotexture is most likely secondary to fatty infiltration. Other hepato cellular disease could have a similar appearance. Please correlate with liver functions. 3. Normal gallbladder. No gallstones were ultrasound findings to suggest acute cholecystitis. 4. Possible nonobstructive right renal stones. No right hydronephrosis. Reviewed by: Akhil Clay MD on 06/23/2021 1:20 AM PST Approved by: Akhil Clay MD on 06/23/2021 1:20 AM PST Station ID: [id number]
[2021-06-23] MEDS ORDERED: KETOROLAC 30 MG/ML VIAL IVP STA (01:26)
[2021-06-23] MEDS ORDERED: HYDROmorphone 1 MG/ML CARPUJECT IVP STA (01:26)
[2021-06-23] MEDS ORDERED: IOVERSOL 320 100 ML VIAL IVP ONE (01:30)
[2021-06-23 03:11] LABS: BILIRUBIN,URINE NEGATIVE (NEGATIVE); GLUCOSE, URINE (UA) NEGATIVE (NEGATIVE); KETONES,URINE (UA) NEGATIVE (NEGATIVE); LEUKOCYTE ESTERASE, URINE NEGATIVE (NEGATIVE); NITRITE,URINE NEGATIVE (NEGATIVE); OCCULT BLOOD,URINE MODERATE (NEGATIVE); PH,URINE 6.5 PH (5.0-7.5); PROTEIN,URINE NEGATIVE (NEGATIVE); UROBILINOGEN,URINE 0.2 (NORMAL) E.U./dL (NORMAL)
[2021-06-23 03:14] LABS: CLARITY,URINE CLEAR (CLEAR); HCG UR QUAL NEGATIVE
--- NOTE | 2021-06-23 03:22 | CT Report ---
PROCEDURE: Abdomen/Pelvis WO INDICATIONS: upper abdominal pain TECHNIQUE: Noncontrast 5 mm thick sections acquired from the diaphragms to the symphysis. 5 mm coronal and sagi ttal reformats were then performed. For radiation dose reduction, the following was used: automated exposure control, adjustment of mA and/or kV according to patient size. COMPARISON: None. FINDINGS: Image quality: Excellent. ABDOMEN: Lung bases: Lung bases are clear. Heart size is normal. Small hiatal hernia. Solid organs: Liver and spleen are normal in size. Gallbladder is normal. Pancreas is normal in co ntours. No adrenal nodules. Kidneys are normal in size, without hydronephrosis or nephrolithiasis. Peritoneum and bowel: Unenhanced bowel loops demonstrate normal wall thickness and caliber. Normal appendix. No free fluid or air. Nodes and vessels: No retroperitoneal or mesenteric adenopathy by size criteria. Aorta and inferior vena cava are normal in caliber. Miscellaneous: No ventral hernias. PELVIS: Genitourinary: Uterus is normal. Ovaries are not well seen. No adnexal mass. No pathological free fl uid in pelvis. Bladder wall thickness is normal. Miscellaneous: No inguinal hernias or adenopathy. Bones: No suspicious bony lesions. No vertebral body compression fractures. IMPRESSION: 1. No acute medication and terminal pelvis. 2. No renal stone or hydronephrosis. 3. Small hiatal hernia. Reviewed by: Akhil Clay MD on 06/23/2021 3:21 AM PST Approved by: Akhil Clay MD on 06/23/2021 3:21 AM PST Station ID: [id number]
[2021-06-23 03:26] LABS: BACTERIA,URINE Rare /HPF (None Seen); SQUAMOUS EPITHELIAL CELL,UR RARE Squamous (<= Few); WBC,URINE 0-3 /HPF (0-5)
[2021-06-23] MEDS ORDERED: ONDANSETRON 4 MG/2 ML VIAL IVP STA (03:34)
[2021-06-23] MEDS ORDERED: oxyCODONE/ACET 5/325 Prepack 4 PO STA (04:38)
--- NOTE | 2021-06-23 04:43 | ED Physician Documentation ---
PD HPI ABD PAIN - Stated complaint Stated Complaint: ABD PX - Chief complaint Chief Complaint: Abd Pain - History obtained from History obtained from: Patient - History of Present Illness Timing - onset: Enter time (20:00), Today Timing - details: Gradual onset Pain level now: 6 Quality: Pain Location: Other (across upper abdomen) Radiation: Left flank, Right flank Improved by: Other (nothing) Worsened by: Moving Associated symptoms: No: Fever, Nausea, Vomiting, Hematemesis, Diarrhea, Constipation Recently seen: Not recently seen - Additional information Additional information: c/o rapid onset pain across upper abdomen, predominantly RUQ and epigastric, with radiation to both flanks. Has not had similar symptoms before. Symptoms began tonight 8 PM at home at rest shortly after eating dinner. Review of Systems Constitutional: reports: Reviewed and negative Cardiac: reports: Reviewed and negative Respiratory: reports: Reviewed and negative GI: reports: Abdominal Pain. 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 HEENT: None Psych: None Musculoskeletal: None Derm: None - Past Surgical History Past Surgical History: Yes Ortho: Other /PRODUCT INSPECTION SUPERVISOR: section HEENT: Tonsil/Adenoidectomy - Present Medications Home Medications: Ambulatory Orders Medication Instructions Recorded Confirmed Albuterol Sulfate [Albuterol 18 gm IH Q6HR PRN #1 hfa.aer.ad 07/22/19 06/22/21 Sulfate Hfa] Ibuprofen [Motrin] 800 mg PO DAILY 06/22/21 06/22/21 Peg 400/Hypromellose/Glycerin 1 drops EACHEYE DAILY 06/22/21 06/22/21 [Artificial Tears Drops] Ondansetron Odt [Zofran] 4 mg TL Q6H PRN #10 tablet 06/23/21 Oxycodone HCl/Acetaminophen 1 - 2 each PO Q6H PRN #14 tablet 06/23/21 [Percocet 5-325 mg Tablet] - Allergies Allergies/Adverse Reactions: Allergies Allergy/AdvReac Type Severity Reaction Status Date / Time Iodine and Iodide Containing Allergy Anaphylaxis Verified 06/22/21 23:06 Produc Penicillins Allergy Respiratory Verified 06/22/21 23:06 - Social History Does the pt smoke?: No Smoking Status: Never smoker Does the pt drink ETOH?: No Does the pt have substance abuse?: No - Immunizations Immunizations are current?: Yes - POLST Patient has POLST: No PD ED PE NORMAL - Vitals Vital signs reviewed: Yes - General General: Alert and oriented X 3, Well developed/nourished, Other (appears to be in moderate painful discomfort) - Neck Neck: Supple, no meningeal sign - Cardiac Cardiac: RRR, No murmur - Respiratory Respiratory: No respiratory distress, Clear bilaterally - Abdomen Abdomen: Soft, Non distended, Other (mild TTP across upper abdomen, predominantly epigastrium, milder TTP RUQ. no rebound or guarding) - Back Back: No CVA TTP - Derm Derm: Normal color, Warm and dry Results - Vitals Vitals: Oxygen O2 Source Room air - Labs Labs: Laboratory Tests 06/22/21 06/22/21 06/23/21 23:00 23:00 02:55 WBC 6.8 RBC 4.48 Hgb 13.3 Hct 40.3 MCV 90.0 MCH 29.7 MCHC 33.0 RDW 12.8 Plt Count 286 MPV 9.5 Neut # (Auto) 3.0 Lymph # (Auto) 3.1 Thayer # (Auto) 0.5 Eos # (Auto) 0.1 Baso # (Auto) 0.0 Absolute Nucleated RBC 0.00 Nucleated RBC % 0.0 Sodium 137 Potassium 3.3 L Chloride 100 L Carbon Dioxide 29 Anion Gap 8.0 BUN 14 Creatinine 0.9 Estimated GFR (MDRD) 86 L Glucose 90 Calcium 8.7 Total Bilirubin 0.9 AST 16 ALT 13 Alkaline Phosphatase 58 Total Protein 7.4 Albumin 4.1 Globulin 3.3 Albumin/Globulin Ratio 1.2 Lipase 23 Urine Color YELLOW Urine Clarity CLEAR Urine pH 6.5 Ur Specific [place] 1.025 Urine Protein NEGATIVE Urine Glucose (UA) NEGATIVE Urine Ketones NEGATIVE Urine Occult Blood MODERATE H Urine Nitrite NEGATIVE Urine Bilirubin NEGATIVE Urine Urobilinogen 0.2 (NORMAL) Ur Leukocyte Esterase NEGATIVE Urine RBC 6-10 H Urine WBC 0-3 Ur Squamous Epith Cells RARE Squamous Urine Bacteria Rare Ur Microscopic Review INDICATED Urine Culture Comments NOT INDICATED Urine HCG, Qual 02/19/22 02:55 WBC RBC Hgb Hct MCV MCH MCHC RDW Plt Count MPV Neut # (Auto) Lymph # (Auto) Thayer # (Auto) Eos # (Auto) Baso # (Auto) Absolute Nucleated RBC Nucleated RBC % Sodium Potassium Chloride Carbon Dioxide Anion Gap BUN Creatinine Estimated GFR (MDRD) Glucose Calcium Total Bilirubin AST ALT Alkaline Phosphatase Total Protein Albumin Globulin Albumin/Globulin Ratio Lipase Urine Color Urine Clarity Urine pH Ur Specific [place] Urine Protein Urine Glucose (UA) Urine Ketones Urine Occult Blood Urine Nitrite Urine Bilirubin Urine Urobilinogen Ur Leukocyte Esterase Urine RBC Urine WBC Ur Squamous Epith Cells Urine Bacteria Ur Microscopic Review Urine Culture Comments Urine HCG, Qual NEGATIVE - Rads (name of study) RUQ US Radiology: Prelim report reviewed, See rad report CT A/P Radiology: Prelim report reviewed, See rad report PD MEDICAL DECISION MAKING - ED course Complexity details: reviewed results, re-evaluated patient, considered differential, d/w patient ED course: presents with upper abdominal pain. normal CBC, no remarkable findings on UA or ER abdominal panel. Abdominal US is limited by patients body habitus. CT A/P has no acute/concerning findings in abdomen/pelvis. She has good pain relief with IV dilaudid and subsequently given IV zofran for nausea that developed later in ED stay. Results d/w patient and lack of diagnosis at this time was also discussed. Return precautions discussed, and recommend follow up with PMD next available appointment. I am prescribing a short course of short-acting opioid pain medication for this patient. I have reviewed the patients STENCILER and no concerning findings were noted. I have discussed that the opioids are for short term therapy only, and will not be refilled from the ED Departure - Departure Disposition: 01 Home, Self Care Clinical Impression: Abdominal pain Qualifiers: Abdominal location: upper abdomen, unspecified Qualified Code(s): R10.10 - Upper abdominal pain, unspecified Condition: Good Instructions: ED Abdominal Pain Female Non-Specific Abdominal Pain Follow-Up: ORACIO ARIZA ARNP [Primary Care Provider] - Prescriptions: Oxycodone HCl/Acetaminophen [Percocet 5-325 mg Tablet] 1 - 2 each PO Q6H PRN #14 tablet PRN Reason: pain Ondansetron Odt [Zofran] 4 mg TL Q6H PRN #10 tablet PRN Reason: Nausea / Vomiting Comments: Based on the tests performed tonight, the cause of your pain is not clear at this time. Follow up with your primary care provider, next available appointment. You should return to the emergency department if your symptoms worsen, if they are not controlled by the medication that has been prescribed, or if you develop new/concerning signs/symptoms (such as fever, shortness of breath, blood in vomit or stool). Prescriptions for percocet (oxycodone with acetaminophen) and ondansetron (antinauseant) have been electronically submitted to the [facility] pharmacy in [place] I am prescribing a short course of narcotic pain medication for you. These are potentially dangerous and addictive medications that should be used carefully. These medications may constipate you. Take an dbcf-jee-uapftoc stool softener (docusate) twice daily with plenty of water while taking these medications. If you go 24 hours without a bowel movement, take [id number] miralax, per package instructions. Do not drink or drive while taking these medications. If you received narcotic or sedating medications while in the emergency department, do not drive for 24 hours. Store this medication in a safe, secure place and out of reach of children. It is a violation of federal law to give or sell this medication to another person or to use in a manner other than prescribed. The ED will not refill narcotic prescriptions, including prescriptions lost or stolen. To dispose of unwanted medications: 1. [facility] at [address] in [place] has a medication drop box. They accept prescription medications (in pill form) Friday through Friday 9:00 a.m. to 5:00 p.m. 2. The [facility] [place] [employer] accepts prescription medications (in pill form only) for disposal year round. Call for more information. 3. Contact the [facility] for the next [facility] sponsored prescription drug collection event. , [phone], or [phone]; Discharge Date/Time: 06/23/21 05:03
[2021-06-23 05:03] VITALS: BP 127/70
== END 2021-06-23 05:03 | disposition home or self-care (01) ==
LOC: ED 22:59
DX: R10.11 Right upper quadrant pain (principal)
CPT/HCPCS: 36415; 74176; 76705; 80053; 81001; 81025; 83690; 85025; 93005; 96374; 96375; 96376; 99284; J1170; 81003; 87086

== ENCOUNTER 2022-01-20 19:12 | Emergency (ER) | payer OTHER ==
--- NOTE | 2022-01-20 20:08 | ED Physician Documentation ---
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 HEENT: Tonsil/Adenoidectomy - Present Medications Home Medications: Ambulatory Orders Medication Instructions Recorded Confirmed Albuterol Sulfate [Albuterol 18 gm IH Q6HR PRN #1 hfa.aer.ad 07/22/19 06/22/21 Sulfate Hfa] Ibuprofen [Motrin] 800 mg PO DAILY 06/22/21 06/22/21 Peg 400/Hypromellose/Glycerin 1 drops EACHEYE DAILY 06/22/21 06/22/21 [Artificial Tears Drops] Ondansetron Odt [Zofran] 4 mg TL Q6H PRN #10 tablet 06/23/21 Oxycodone HCl/Acetaminophen 1 - 2 each PO Q6H PRN #14 tablet 06/23/21 [Percocet 5-325 mg Tablet] - Allergies Allergies/Adverse Reactions: Allergies Allergy/AdvReac Type Severity Reaction Status Date / Time Iodine and Iodide Containing Allergy Anaphylaxis Verified 01/20/22 19:26 Produc Penicillins Allergy Respiratory Verified 01/20/22 19:26 - Social History Does the pt smoke?: No Smoking Status: Never smoker Does the pt drink ETOH?: No Does the pt have substance abuse?: No - Immunizations Immunizations are current?: Yes - POLST Patient has POLST: No Results - Vitals Vitals: Vital Signs - 24 hr 01/20/22 19:22 Temperature 36.4 C L Heart Rate 100 Respiratory 16 Rate Blood Pressure 145/86 H O2 Saturation 100 Oxygen O2 Source Room air
[2022-01-20] MEDS ORDERED: KETOROLAC 30 MG/ML VIAL IM STA (20:17)
[2022-01-20] MEDS ORDERED: SUMAtriptan 6 MG/0.5 ML VIAL SUBQ STA (20:17)
[2022-01-20] MEDS ORDERED: ONDANSETRON 4 MG/2 ML VIAL IM STA (20:17)
[2022-01-20] MEDS ORDERED: HYDROmorphone 0.5 MG/0.5 ML SYRINGE IVP STA (21:24)
[2022-01-20] MEDS ORDERED: SODIUM CHLORIDE 0.9% 1,000 ML IV STA (21:24)
[2022-01-20] MEDS ORDERED: diphenhydrAMINE INJ 50 MG/ML VIAL IVP STA (21:24)
[2022-01-20] MEDS ORDERED: PROCHLORPERAZINE 10 MG/2 ML VIAL IVP STA (21:24)
[2022-01-20] MEDS ORDERED: HYDROmorphone 0.5 MG/0.5 ML SYRINGE ONE (21:49)
[2022-01-20 22:27] VITALS: BP 117/66
[2022-01-20] MEDS ORDERED: HYDROmorphone 1 MG/ML CARPUJECT IVP STA (22:28)
--- NOTE | 2022-01-20 22:43 | ED Physician Documentation ---
PD HPI HEADACHE - Stated complaint Stated Complaint: MIGRAINE - Chief complaint Chief Complaint: Neuro - History obtained from History obtained from: Patient - History of Present Illness Timing - onset: Yesterday Timing - onset during: Light activity Timing - details: Abrupt onset, Still present (1 1/2) Worst headache ever?: No: Worst headache ever? (feels like usual migraines. Had had less of them in recent past as was on Topamox preventive. Not on it currently and has had increased headaches.) Location: Global Quality: Throbbing, Aching Associated symptoms: Nausea, Vision changes. 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 HEENT: None Psych: None Musculoskeletal: None Derm: None - Past Surgical History Past Surgical History: Yes 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 HEENT: Tonsil/Adenoidectomy - Present Medications Home Medications: Ambulatory Orders Medication Instructions Recorded Confirmed Albuterol Sulfate [Albuterol 18 gm IH Q6HR PRN #1 hfa.aer.ad 07/22/19 06/22/21 Sulfate Hfa] Ibuprofen [Motrin] 800 mg PO DAILY 06/22/21 06/22/21 Peg 400/Hypromellose/Glycerin 1 drops EACHEYE DAILY 06/22/21 06/22/21 [Artificial Tears Drops] Ondansetron Odt [Zofran] 4 mg TL Q6H PRN #10 tablet 06/23/21 Oxycodone HCl/Acetaminophen 1 - 2 each PO Q6H PRN #14 tablet 06/23/21 [Percocet 5-325 mg Tablet] Indomethacin [Indocin] 25 mg PO BIDWM PRN #6 cap 01/20/22 Ondansetron Odt [Zofran] 4 mg TL Q6H PRN #10 tablet 01/20/22 Rizatriptan Benzoate [Rizatriptan] 10 mg PO Q6H PRN #6 tab 01/20/22 - Allergies Allergies/Adverse Reactions: Allergies Allergy/AdvReac Type Severity Reaction Status Date / Time Iodine and Iodide Containing Allergy Anaphylaxis Verified 01/20/22 19:26 Produc Penicillins Allergy Respiratory Verified 01/20/22 19:26 - Social History Does the pt smoke?: No Smoking Status: Never smoker Does the pt drink ETOH?: No Does the pt have substance abuse?: No - Immunizations Immunizations are current?: Yes - POLST Patient has POLST: No PD ED PE NORMAL - Vitals Vital signs reviewed: Yes - General General: Alert and oriented X 3, Well developed/nourished - HEENT HEENT: Atraumatic, PERRL, EOMI (very light and noise sensitive. ) - Neck Neck: Supple, no meningeal sign, No adenopathy - Cardiac Cardiac: RRR, No murmur - Respiratory Respiratory: Clear bilaterally - Abdomen Abdomen: Soft, Non tender - Derm Derm: Normal color, Warm and dry - Extremities Extremities: No tenderness to palpate, Normal ROM s pain - Neuro Neuro: Alert and oriented X 3, No motor deficit, No sensory deficit, Normal speech Eye Opening: Spontaneous Motor: Obeys Commands Verbal: Oriented GCS Score: 15 Results - Vitals Vitals: Vital Signs - 24 hr 01/20/22 01/20/22 19:22 22:27 Temperature 36.4 C L Heart Rate 100 71 Respiratory 16 18 Rate Blood Pressure 145/86 H 117/66 O2 Saturation 100 100 Oxygen O2 Source Room air PD MEDICAL DECISION MAKING - ED course Complexity details: re-evaluated patient (not improved with tryptan and toradol. Will go with IV then. This did help better. ), considered differential (seems like migraine and patient feels it is migraine. ), d/w patient Departure - Departure Disposition: 01 Home, Self Care Clinical Impression: Migraine Qualifiers: Migraine type: unspecified Status migrainosus presence: with status migrainosus Intractability: not intractable Qualified Code(s): G43.901 - Migraine, unspecified, not intractable, with status migrainosus Condition: Stable Record reviewed to determine appropriate education?: Yes Instructions: ED Headache Migraine Follow-Up: ORACIO ARIZA ARNP [Primary Care Provider] - Prescriptions: Indomethacin [Indocin] 25 mg PO BIDWM PRN #6 cap PRN Reason: Headache Rizatriptan Benzoate [Rizatriptan] 10 mg PO Q6H PRN #6 tab PRN Reason: Migraine Ondansetron Odt [Zofran] 4 mg TL Q6H PRN #10 tablet PRN Reason: Nausea / Vomiting Comments: Home and rest tonight. Hopefully this will continue to drift away and be gone tomorrow. For subsequent migraines, you can try combination of rizatriptan along with ondansetron nausea medicine and indomethacin anti-inflammatory and see if that helps stop the headache early in the course. Stay well-hydrated. Follow-up with your primary care regarding further treatments or daily medication for the headaches. I sent your prescriptions to the [facility]. Discharge Date/Time: 01/20/22 22:55
== END 2022-01-20 22:55 | disposition home or self-care (01) ==
LOC: ED 19:12
DX: G43.901 Migraine, unspecified, not intractable, with status migrainosus (principal)
CPT/HCPCS: 96372; 96374; 96375; 96376; 99284; 99285; J1170; J1200